=== PATIENT | male | born 1960 | race Caucasian/White ===

== ENCOUNTER → 2017-01-18 | Outpatient (CLI) | payer BC ==
[~2017-01-18] MED LIST: ACT15 PO; ASPEC81 PO; CHOL2000 PO; CYCL0.052 OP; DIAZ2TAB PO; GLC500 PO; GLGKIT; HMLI SC; INSDGI SC; LISI-461 PO; LISI-725 PO; MULT-1093 PEG; MULTCHW; PRLSR20 PO; RIZA10TA18 PO; SIMV20TA2 PO; TERB250T51 PO
--- NOTE | 2017-01-18 09:06 | DIAGNOSTIC IMAGING REPORT ---
CT SCAN OF THE CHEST WITHOUT IV CONTRAST CLINICAL HISTORY: COPD. Dyspnea. COMPARISON STUDY: Chest radiographs dated 12/14/2016. TECHNIQUE: CT scan of the thorax was performed from the thoracic inlet to the upper abdomen. Images are reviewed in the axial, sagittal, and coronal planes. IV contrast was not administered for this examination as per the front clinician. CT DOSE: 540.30 mGy.cm FINDINGS: Thyroid: Imaged portions of the thyroid gland are normal in size and attenuation. Thoracic aorta: The thoracic aorta is normal in caliber and demonstrates standard 3-vessel arch anatomy. Heart: The heart is enlarged and there is trace pericardial effusion. The pulmonary trunk is dilated, measuring 3.6 cm diameter. This suggests pulmonary artery hypertension. Lungs and pleural spaces: There is minimal emphysematous change. There is a small fat-containing Bochdalek hernia at the left lung base. No airspace consolidation or pleural effusion is identified. Linear atelectasis versus scarring is noted in the right middle lobe and lingula. The trachea and central airways are clear. There are 2 foci of nodular pleural thickening in the left lower lobe along the major fissure seen on image #152. A 3 mm left lower lobe nodule is seen on image #218. Mediastinum: There is no mediastinal lymphadenopathy. Ivone: Not well assessed without IV contrast. Axillae: There is no axillary lymphadenopathy. Upper abdomen: A tiny hiatal hernia is noted. Nonobstructing calculi are present in the upper poles of both kidneys. Skeletal structures: The skeletal structures are osteopenic. No lytic or blastic bony lesions are seen. There are healed right-sided rib fractures. IMPRESSION: 1. Mild emphysema. 2. There is no airspace consolidation or pleural effusion. 3. Cardiomegaly with evidence of pulmonary artery hypertension. 4. There are 2 foci of nodular pleural thickening along the left major fissure measuring up to 8 mm. Additionally, there is a 3 mm left lower lobe pulmonary nodule. These are pathologically indeterminant but of low suspicion. These should be followed as per the Fleischner criteria. See below. 5. Bilateral nonobstructing renal calculi. 6. Additional findings as above. Please refer to below summary of Fleischner criteria recommendations for follow-up of incidental CT nodules (Jazmin Oneill, Guidelines for management of small pulmonary nodules detected on CT scans: A statement from the Fleischner Society, Radiology 237: [phone].) SOLID NODULES Solitary nodule size: <6 mm * low risk patients: no follow-up needed * high risk patients: optional CT at 12 months Solitary nodule size: 6-8 mm * low risk patients: follow-up at 6-12 months, then consider further follow-up at 18-24 months * high risk patients: initial follow-up CT at 6-12 months and then at 18-24 months if no change Solitary nodule size: >8 mm * either low or high risk patients - consider follow-up CT at 3 months, and/or CT-PET, and/or biopsy Multiple nodules size: <6 mm * low risk patients: no routine follow-up * high risk patients: optional CT at 12 months Multiple nodules size: 6-8 mm * low risk patients: follow-up at 3-6 months, then consider further follow-up at 18-24 months * high risk patients: follow-up at 3-6 months, then at 18-24 months if no change Multiple nodules size: >8 mm * low risk patients: follow-up at 3-6 months, then consider further follow-up at 18-24 months * high risk patients: follow-up at 3-6 months, then at 18-24 months if no change Note: newly detected indeterminate nodule in persons 35 years of age or older. * low risk patients: minimal or absent history of smoking and/or other known risk factors * high risk patients: history of smoking or of other known risk factors (e.g. first degree relative with lung cancer, or exposure to asbestos, radon, uranium) * if a nodule up to 8 mm is partly solid or is ground glass further follow-up is required after 24 months to exclude possible slow growing adenocarcinoma (KWADWO) SUBSOLID NODULES Solitary pure ground-glass nodule * nodule size <6 mm - no CT follow-up required * nodule size >=6 mm - follow-up CT at 6-12 months, then every 2 years until 5 years Solitary part-solid nodule * nodule size <6 mm - no CT follow-up required * nodule size >=6 mm - follow-up CT at 3-6 months. If unchanged, and solid component remains <6 mm, then annual follow-up for 5 years Multiple subsolid nodules * nodule size <6 mm - follow-up CT at 3-6 months, consider further follow-up at 2 and 4 years if stable * nodule size >=6 mm - follow-up CT at 3-6 months, subsequent management based on the most suspicious nodule(s) Electronically signed by: Alexi Quick M.D. 01/18/2017 9:04 AM Dictated Date/Time: 01/18/2017 8:58 AM
== END ==
LOC: C.CTS 07:48
PROVIDERS: ATTEND Internal Medicine Critical Care Medicine
DX: J44.9 Chronic obstructive pulmonary disease, unspecified (principal)

== ENCOUNTER → 2017-04-11 | Day surgery (SDC) | payer BC ==
[~2017-04-11] VITALS: Ht 182.9 cm; Wt 113.0 kg
[2017-04-11 10:00] VITALS: BP 132/80; PULSE 60; TEMP 36.6; O2SAT 100; Ht 182.9 cm; Wt 113.0 kg
[2017-04-11 11:59] LABS: ISTAT ARTERIAL BLOOD GAS HCO3 23 meq/L (19-24); ISTAT ARTERIAL BLOOD GAS PCO2 40 mmHg (35-46); ISTAT ARTERIAL BLOOD GAS PO2 34 mmHg (80-95); ISTAT ARTERIAL BLOOD GAS pH 7.37 (7.35-7.45); ISTAT CARBON DIOXIDE 24 mEq/l (24-31)
--- NOTE | 2017-04-11 12:09 | History & Physical Bridge Note ---
H&P Re-Evaluation Bridge Note: I have examined the patient, reviewed the History & Physical and in the interval since the performance of the History & Physical I have noted the following changes of clinical significance: No changes noted
--- NOTE | 2017-04-11 12:15 | Procedure Note ---
Pre-Mod Sedation Assessment General Date of Moderate Sedation: Apr 11, 2017. Vital Signs: Vital Signs Past 12 Hours Date Time Temp Pulse Resp B/P (MAP) Pulse Ox O2 Delivery O2 Flow Rate FiO2 04/11/17 11:55 58 16 126/51 (76) 98 Room Air 04/11/17 11:40 64 16 142/77 (98) 98 Room Air 04/11/17 11:33 62 16 139/74 (95) 98 Room Air 04/11/17 10:00 36.6 60 16 132/80 100 Room Air Review Cardiovascular: regular rate, rhythm, no edema Abdomen: normal bowel sounds, non tender Lungs: chest non-tender, lungs clear Pre-Sedation Airway Assessment Oral Cavity: WNL Able to Visualize Vocal Cords: No Short Thick Neck: No Hx of Sleep Apnea: No Smoking Status: Never Smoker Mallampati Classification: Class III ASA Classification: Class II Procedure Planning Contraindications-for Mod Sed: None Yes Notes The planned sedation has been discussed with the patient and consent obtained. I have identified the patient, determined the appropriateness of sedation and have assessed the patient immediately prior to the procedure. All medicine(s) and interventions are by my order.
--- NOTE | 2017-04-11 12:16 | Procedure Note ---
Post-Mod Sedation Assessment General Date of Moderate Sedation Apr 11, 2017. Vital Signs: Vital Signs Past 12 Hours Date Time Temp Pulse Resp B/P (MAP) Pulse Ox O2 Delivery O2 Flow Rate FiO2 04/11/17 11:55 58 16 126/51 (76) 98 Room Air 04/11/17 11:40 64 16 142/77 (98) 98 Room Air 04/11/17 11:33 62 16 139/74 (95) 98 Room Air 04/11/17 10:00 36.6 60 16 132/80 100 Room Air Review - Discharge Criteria Vital Signs Stable: Yes Alert/Oriented/Conversant: Yes Returned to Baseline Mental St: Yes Nausea Absent/Minimal: Yes Pain/Discomfort/Absent/Minimal: Yes Normal/Baseline Respirations: Yes Active Bleeding?: No Pt Received D/C Instructions: Yes Prescriptions Given: None Specific Proced. D/C Criteria Distal Pulses Present (Cardiac: Yes Groin site assessed-Card Cath: N/A Voided Prior To Discharge: N/A Discharged Patients Adult Escort/Transportation: Yes
--- NOTE | 2017-04-11 12:18 | Discharge Instructions ---
Discharge Instructions Procedure Procedure Date: Apr 11, 2017. Reason for Visit: Dyspnea On Exertion Dr Resendiz To Do. Discharge Discharge Date: Apr 11, 2017. Discharge Diagnosis: Dyspnea on exertion Last Recorded Wt (Kilograms): 113 Anesthesia Post Anesthesia Instructions: If you have had General Anesthesia or IV Sedation: * Do not drive today. * Resume driving when surgeon permits. * Do not make important decisions or sign legal documents today. * Call surgeon for: 1. Temperature elevations greater than 101 degrees F. 2. Uncontrollable pain. 3. Excessive bleeding. 4. Persistent nausea and vomiting. 5. Medication intolerance (nausea, vomiting or rash). * For nausea and vomiting use only clear liquids such as: tea, soda, bouillon until nausea subsides, then gradually increase diet as tolerated. * If you have any concerns or questions, call your surgeon's office. If physician is unavailable and it is an emergency, call 911 or go to the nearest emergency room. Instructions Activity Recommendations: no limitations, limitations as noted below Recommended Home Diet: resume previous diet Allergies: Coded Allergies: Penicillins (Verified Allergy, Mild, 09/30/09) Follow Up Follow-up with: Follow-up with Dr. Salinas Yaoy Recommendations: Call your doctor if: * Temperature above 101 degrees * Pain not relieved by pain medicine ordered * There is increased drainage or redness from any incision * You have any unanswered questions or concerns. Your Doctors Instructions noted above were prepared by provider Antolin Resendiz. Patient Signature Section: Patient Instructions Signature Page Mino Aguirre Patient (or Guardian) Signature/Date: I have read and understand the instructions given to me by my caregivers. Caregiver/RN/Doctor Signature/Date: The above-named patient and/or guardian has received patient instructions on this date. + Original Patient Signature Page (only) stays with chart. Please make copy for patient.
[2017-04-11 12:40] VITALS: BP 122/76; PULSE 78; O2SAT 98
--- NOTE | 2017-04-11 22:44 | Cardiac Catheterization ---
Procedure Note Procedure Date Apr 11, 2017. Pre-Procedure Diagnosis CHF AUC Score RHC Post-Procedure Diagnosis Normal Intracardiac Pressures Procedure(s) Performed Right Heart Cath Senior Water Resources Engineer Martín Claims Adjuster Supervisor(s) Oliver Estimated Blood Loss Medication(s) Lidocaine 1% Summary of Findings RIGHT HEART CATHETERIZATION Indication: Dyspnea on exertion/Evaluate for HFpEF, Pulmonary hypertension Access: 6Fr slender right antecubital vein Catheters: 6Fr [place] Findings: RA 5 RV 38/8 PA 39/7 (21) PCW 9 PaSat 63% AoSat 99% Josafat CO/CI 5.2/2.2 Thermo CO/CI 8.4/3.6 Summary: 1. Normal cardiac output. Normal left-sided filling pressures. 2. No significant pulmonary hypertension. Recommendations: Continued follow-up with Dr. Niño Hemodynamics Rest Ao: -- Final Ao: -- LV: -- Recommendations Medical therapy and/or Counseling Specimens None Radiation Exposure (mGy) 38 Contrast (mls) 0 Fluids (cc crystalloids) 52 Drains None Anesthesia Local Procedural Complication(s) None Disposition Cash Applications Analyst Holding/Recovery ACC Data Cardiac Status Clinical evaluation leading to the procedure CAD Presntation: Sx unlikely to be ischemic Anginal Classification: CCS II Heart Failure: NYHA Class: CCS II Cardiogenic Shock w/in 24Hrs: No Imaging studies past 6 months: Yes Stress studies past 6 months: No Closure Device Closure Device: none - manual hold Intraprocedure Events Significant Dissection: No Perforation: No
== END | disposition home or self-care (01) ==
LOC: C.CATH 09:53
PROVIDERS: ATTEND Internal Medicine Interventional Cardiology
DX: J44.9 Chronic obstructive pulmonary disease, unspecified (principal); E11.9 Type 2 diabetes mellitus without complications; E78.5 Hyperlipidemia, unspecified; I10 Essential (primary) hypertension; E05.90 Thyrotoxicosis, unspecified without thyrotoxic crisis or storm; G25.81 Restless legs syndrome; E55.9 Vitamin D deficiency, unspecified; Z87.442 Personal history of urinary calculi; Z79.82 Long term (current) use of aspirin